=== PATIENT | female | born 1985 | race African-American/Black ===

== ENCOUNTER 2019-01-17 17:53 | Emergency (ER) | payer SELFPAY ==
[~2019-01-17] VITALS: Ht 152.4 cm; Wt 52.6 kg
[2019-01-17 17:53] VITALS: BP 143/80
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
[2019-01-17] MEDS ORDERED: IBUPROFEN 200 MG TABLET. PO ONE (18:30)
[2019-01-17] MEDS ORDERED: LIDOCAINE 1% Multi-Dose 20 ML VIAL. INJ ONE (18:30)
[2019-01-17] MEDS ORDERED: IBUP-1007 PO (19:25)
[2019-01-17] MEDS ORDERED: HYDR-3164 PO (22:00)
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
== END 2019-01-17 22:17 | disposition home or self-care (01) ==
LOC: ER 17:53
DX: S81.811A Laceration without foreign body, right lower leg, initial encounter (principal); F10.129 Alcohol abuse with intoxication, unspecified; Y90.9 Presence of alcohol in blood, level not specified; W22.8XXA Striking against or struck by other objects, initial encounter; Y93.89 Activity, other specified; Y92.89 Other specified places as the place of occurrence of the external cause; Y99.8 Other external cause status
CPT/HCPCS: 12004; 73590; 99284

== ENCOUNTER 2019-02-05 19:14 | Emergency (ER) | payer SELFPAY ==
[~2019-02-05] VITALS: Ht 162.6 cm; Wt 52.6 kg
[~2019-02-05 19:14] MED LIST: DOCU-109 PO; HYDR-3164 PO; IBUP-1007 PO; NAPR-683 PO; OXYC1TAB15 PO
[2019-02-05 19:30] VITALS: BP 143/80
[2019-02-05] MEDS ORDERED: NEOMY/BACITR/POLYMYXIN OINT PACKET. TP ONE ×2 (20:15→21:00)
[2019-02-05] MEDS ORDERED: CLIN150C14 PO (20:19)
--- NOTE | 2019-02-05 20:19 | PHYS DOC ---
Past Medical History Past Medical History: Other Additional Past Medical Histor: ECZEMA (CHRISTIAN MATUTE APRN) Past Surgical History: (CHRISTIAN MATUTE APRN) Alcohol Use: Occasionally Drug Use: None (CHRISTIAN MATUTE APRN) Adult General Chief Complaint Chief Complaint: SUTURE/STAPLE REMOVAL HPI HPI Patient is a 33 year old AA Female who presents to the ER with need for suture removal from RLE laceration sites. Pt states she had the sutures placed on 01/18/19. She states the sites are tender and have been draining pus. She denies any fever, numbness, or tingling. She denies any pain unless the areas are touched. (CHRISTIAN MATUTE APRN) Review of Systems Review of Systems Constitutional: Denies fever or chills [] Musculoskeletal: Denies back pain or joint pain [] Integument: See HPI Neurologic: Denies headache, focal weakness or sensory changes [] Complete systems were reviewed and found to be within normal limits, except as documented in this note. (CHRISTIAN MATUTE APRN) Current Medications Current Medications Current Medications Medications (Trade) Dose Ordered Sig/Alfredo Start Time Stop Time Status Last Admin Dose Admin Diphtheria/ Tetanus/Acell Pertussis (Boostrix) 0.5 ml ONCE ONCE 02/05/19 21:00 02/05/19 20:31 DC Lidocaine HCl (Xylocaine-Mpf 1% 2ml Vial) 4 ml 1X ONCE 02/05/19 21:00 02/05/19 20:32 DC Neomycin/ Polymyxin/ Bacitracin (Triple Antibiotic Ointment) 1 pkt 1X ONCE 02/05/19 21:00 02/05/19 20:53 DC 02/05/19 20:51 1 PKT (NANCY IRAHETA DO) Allergies Allergies Allergies Coded Allergies Type Severity Reaction Last Updated Verified No Known Drug Allergies 01/17/19 No (NANCY IRAHETA DO) Physical Exam Physical Exam Constitutional: Well developed, well nourished, no acute distress, non-toxic appearance. [] HENT: Normocephalic, atraumatic, bilateral external ears normal, nose normal. [] Eyes: PERRLA, EOMI, conjunctiva normal, no discharge. [] Neck: Normal range of motion, no tenderness, supple, no stridor. [] Cardiovascular:Heart rate regular rhythm Lungs & Thorax: Respirations even and unlabored, no retractions, no respiratory distress Abdomen: Bowel sounds normal, soft, no tenderness, no masses, no pulsatile masses. [] Skin: Warm, dry; laceration #1 to anterior of RLE has erythema warmth and pus drainage from the superior sutures, edges well approximated with [address] laceration #2 to posterior RLE appears open with pus drainage, warmth, and erythema. [address] Extremities: No cyanosis, no clubbing, ROM intact Neurologic: Alert and oriented X 3, normal motor function, normal sensory function, no focal deficits noted. [] Psychologic: Affect normal, judgement normal, mood normal. [] (CHRISTIAN MATUTE APRN) Current Patient Data Vital Signs Vital Signs Date Time Temp Pulse Resp B/P (MAP) Pulse Ox O2 Delivery O2 Flow Rate FiO2 02/05/19 19:30 98.5 92 16 143/80 (101) 100 Room Air 98.5 (IRAHETANANCY TYSON DO) EKG EKG [] (CHRISTIAN MATUTE APRN) Radiology/Procedures Radiology/Procedures 8 sutures were removed from laceration #1 located on the anterior RLE, no wound dehiscence, scant amount of pus drainage from superior sutures. 7 sutures were removed from laceration #2 located on talia posterior RLE, there is wound dehiscence with a large amount of purulent drainage. The site was cleansed with a surgical scrub and NS, antibiotic ointment and a bandage were applied by Cain RIOS. [] (CHRISTIAN MATUTE APRN) Course & Med Decision Making Course & Med Decision Making Pertinent Labs and Imaging studies reviewed. (See chart for details) [] (CHRISTIAN MATUTE APRN) Dragon Disclaimer Dragon Disclaimer This electronic medical record was generated, in whole or in part, using a voice recognition dictation system. (CHRISTIAN MATUTE APRN) Departure Departure Impression: Primary Impression: Encounter for removal of sutures Additional Impression: Infected laceration of skin Disposition: 01 HOME, SELF-CARE Condition: STABLE Referrals: UNKNOWN PCP NAME (PCP) Patient Instructions: Suture Removal-Brief Additional Instructions: Fill the prescription and use as directed. Apply antibiotic ointment and a clean bandage twice daily and as needed. Follow up with your primary care doctor this week to have wound rechecked. 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 I was available for consultation as needed during the patient's visit in the emergency department. I agree with the clinical impression, plan, and disposition. (NANCY IRAHETA DO) Problem Qualifiers CHRISTIAN MATUTE [employer] Feb 05, 2019 20:19 NANCY IRAHETA DO Feb 09, 2019 11:00
[2019-02-05] MEDS ORDERED: DIPHTH,PERTUSS(ACELL),TET TOX 0.5 ML DISP.SYRIN. VAX IM ONE (21:00)
[2019-02-05] MEDS ORDERED: LIDOCAINE 1% PF 2 ML VIAL. INJ ONE (21:00)
== END 2019-02-05 20:44 | disposition home or self-care (01) ==
LOC: ER 19:14
DX: S81.811D Laceration without foreign body, right lower leg, subsequent encounter (principal); L08.9 Local infection of the skin and subcutaneous tissue, unspecified; X58.XXXD Exposure to other specified factors, subsequent encounter
CPT/HCPCS: 12020; 99283; 99284

== ENCOUNTER 2021-11-22 12:14 | Emergency (ER) | payer OTHER, MEDICAID ==
[~2021-11-22] VITALS: Ht 149.9 cm; Wt 50.8 kg
[~2021-11-22 12:14] MED LIST changes: +CLIN150C16 PO
[2021-11-22] MEDS ORDERED: HYDROcodone/APAP 5/325MG 1 TAB TABLET PO ONE (12:45)
[2021-11-22] MEDS ORDERED: SMZ/TMP 800/160MG TABLET. PO ONE (12:45)
[2021-11-22] MEDS ORDERED: SULF1TAB24 PO (12:55)
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
== END 2021-11-22 13:45 | disposition home or self-care (01) ==
LOC: ER 12:14
DX: S13.9XXA Sprain of joints and ligaments of unspecified parts of neck, initial encounter (principal); L02.31 Cutaneous abscess of buttock; F17.200 Nicotine dependence, unspecified, uncomplicated; V89.2XXA Person injured in unspecified motor-vehicle accident, traffic, initial encounter; Y93.89 Activity, other specified; Y92.488 Other paved roadways as the place of occurrence of the external cause; Y99.8 Other external cause status
CPT/HCPCS: 72125; 99284-25